=== PATIENT | female | born 1970 | race Hispanic/Latino ===

== ENCOUNTER 2022-03-03 09:08 | Emergency (ER) | payer SELFPAY ==
--- NOTE | 2022-03-03 09:19 | EDPHYS ---
Physician Documentation [facility] Name: Vannesa Jacob Age: 52 yrs Sex: Female : 1970 Arrival Date: 03/03/2022 Time: 09:11 Bed DIS1 Private MD: ED Physician Demetri Ott HPI: 03/03 09:17 This 52 yrs old Female presents to ER via Unassigned with complaints of Ear kb Pain. 09:17 The patient presents with pain, moderate. The complaints affect the left ear. Onset: kb The symptoms/episode began/occurred 3 day(s) ago. Modifying factors: The symptoms are alleviated by nothing, the symptoms are aggravated by touching. Associated signs and symptoms: The patient has no apparent associated signs or symptoms. Severity of symptoms: At their worst the symptoms were moderate in the emergency department the symptoms are unchanged. The patient has not experienced similar symptoms in the past. The patient has not recently seen a physician. Pt reports left ear pain for 3 days. Denies drainage, fever. States ear is painful to touch. Historical: - Allergies: 09:24 No Known Allergies; iw - Home Meds: :24 None [Active]; iw - PMHx: :24 None; iw - PSHx: :24 None; iw ROS: 09:17 Constitutional: Negative for fever, chills, and weight loss. kb 09:17 ENT: Positive for ear pain. 09:17 All other systems are negative. Exam: 09:17 Constitutional: This is a well developed, well nourished patient who is awake, alert, kb and in no acute distress. Head/Face: Normocephalic, atraumatic. Cardiovascular: Regular rate and rhythm with a normal S1 and S2. No gallops, murmurs, or rubs. No pulse deficits. Respiratory: Respirations even and unlabored. No increased work of breathing. Talking in full sentences Abdomen/GI: Soft, non-tender. No distention Skin: Warm, dry with normal turgor. Normal color. MS/ Extremity: Pulses equal, no cyanosis. Neurovascular intact. Full, normal range of motion. Neuro: Awake and alert, GCS 15, oriented to person, place, time, and situation. Moves all extremities. Normal gait. 09:17 ENT: External ear(s): are unremarkable, Ear canal(s): erythema, that is minimal, of the left canal, purulent discharge, that is moderate, in the left canal, swelling, that is moderate, of the left canal, TM's: are normal, Examination of the other ear shows no obvious abnormality. Vital Signs: 09:23 BP 167 / 76; Pulse 74; Resp 16; Temp 98.4; Pulse Ox 98% on R/A; iw MDM: 09:17 Patient medically screened. kb 09:17 Data reviewed: vital signs, nurses notes. Data interpreted: Pulse oximetry: on room air kb is 100 %. Interpretation: normal. Counseling: I had a detailed discussion with the patient and/or guardian regarding: the historical points, exam findings, and any diagnostic results supporting the discharge/admit diagnosis, the need for outpatient follow up, a family practitioner, to return to the emergency department if symptoms worsen or persist or if there are any questions or concerns that arise at home. Administered Medications: No medications were administered Disposition: 10:02 Co-signature as Attending Physician, Demetri Ott MD I agree with the assessment and rt plan of care. Disposition Summary: 03/03/22 09:19 Discharge Ordered Location: Home kb Condition: Stable kb Diagnosis - Unspecified otitis externa, left ear kb Followup: kb - With: Emergency Department - When: As needed - Reason: Worsening of condition Followup: kb - With: Private Physician - When: 2 - 3 days - Reason: Recheck today's complaints, Continuance of care, Re-evaluation by your physician Discharge Instructions: - Discharge Summary Sheet kb - Otitis Externa, [id number] kb - Ear Drops, Adult, [id number] kb Forms: - Medication Reconciliation Form kb - Thank You Letter kb - Antibiotic Education kb - Prescription Opioid Use kb Prescriptions: - Ciprodex 0.3-0.1 % Otic Drops, Suspension - instill 4 drops by OTIC route every 12 hours for 7 days , for ears ONLY; 1 kb Container; Refills: 0, Product Selection Permitted Signatures: Lo Faria, KOMAL-C KOMAL-Do Hernandez RN RN Demetri Patel MD MD rt Corrections: (The following items were deleted from the chart) 09:24 09:24 PMHx: Unable to Obtain; iw
--- NOTE | 2022-03-03 09:24 | ER ---
Nurse's Notes [facility] Name: Vannesa Jacob Age: 52 yrs Sex: Female : 1970 Arrival Date: 03/03/2022 Time: 09:11 Bed DIS1 Private MD: Diagnosis: Unspecified otitis externa, left ear Presentation: 03/03 09:23 Chief complaint: Patient states: left ear pain X 3 days. Coronavirus screen: At this iw time, the client does not indicate any symptoms associated with coronavirus-19. Ebola Screen: Patient negative for fever greater than or equal to 101.5 degrees Fahrenheit, and additional compatible Ebola Virus Disease symptoms Patient denies exposure to infectious person. Patient denies travel to an Ebola-affected area in the 21 days before illness onset. No symptoms or risks identified at this time. Initial Sepsis Screen: Does the patient meet any 2 criteria? No. Patient's initial sepsis screen is negative. Does the patient have a suspected source of infection? No. Patient's initial sepsis screen is negative. Risk Assessment: Do you want to hurt yourself or someone else? Patient reports no desire to harm self or others. Onset of symptoms was March 03, 2022. 09:23 Method Of Arrival: Ambulatory iw 09:23 Acuity: ANN-MARIE 4 iw Historical: - Allergies: 09:24 No Known Allergies; iw - Home Meds: 09:24 None [Active]; iw - PMHx: 09:24 None; iw - PSHx: 09:24 None; iw Vital Signs: 09:23 BP 167 / 76; Pulse 74; Resp 16; Temp 98.4; Pulse Ox 98% on R/A; iw ED Course: 09:11 Patient arrived in ED. mr 09:13 Lo F[facility]-C [facility] kb 09:13 Demetri Ott MD is Attending Physician. kb 09:23 Do Villarreal, RN is Primary Nurse. iw 09:24 Triage completed. iw 09:24 Arm band placed on. iw Administered Medications: No medications were administered Outcome: :19 Discharge ordered by . kb 09:24 Patient left the ED. iw Signatures: Lo Faria FNP-C FNP-Ckb Rivera, Mary mr Do Villarreal, RN RN iw Corrections: (The following items were deleted from the chart) :24 09:24 PMHx: Unable to Obtain; iw iw
[2022-03-03 09:27] VITALS: BP 167/76; TEMP 98.4; O2SAT 98
== END 2022-03-03 09:24 | disposition home or self-care (01) ==
LOC: ER 09:08
DX: H60.92 Unspecified otitis externa, left ear (principal)
CPT/HCPCS: 99281

== ENCOUNTER 2022-09-25 09:47 | Emergency (ER) | payer SELFPAY ==
[2022-09-25 10:26] LABS: Absolute Lymphocytes (CBC) 1.7 K/uL (0.7-4.9); Lymphocytes % 23.1 % (15.3-44.8); MCV 86.8 fL (80-100); MPV 7.8 fL (7.6-11.3); RBC Red Blood Cell Count 5.18 M/uL (3.86-4.86)
[2022-09-25 10:35] LABS: Specific Gravity 1.024 (1.005-1.030); Urine Bacteria None Seen /HPF (<20); Urine Bilirubin NEGATIVE (Negative); Urine Blood 1+ (Negative); Urine Clarity Turbid (Clear); Urine Color Yellow (Yellow); Urine Glucose NEGATIVE (Negative); Urine Mucus 3+ /HPF (None Seen); Urine Protein TRACE (Negative); Urine Urobilinogen Normal (Normal); Urine pH 5.5 (5.0-7.0)
[2022-09-25 10:42] LABS: Albumin 3.9 g/dL (3.4-5.0); Bilirubin Total 1.2 mg/dL (0.2-1.0); Potassium 3.7 mEq/L (3.5-5.1)
[2022-09-25 11:00] LABS: Specific Gravity 1.024 (1.005-1.030)
[2022-09-25] MEDS ORDERED: NA CHLORIDE 0.9% 1,000 ML ONE (11:16)
[2022-09-25] MEDS ORDERED: ONDANSETRON 4 MG/2 ML VIAL ONE (11:16)
[2022-09-25] MEDS ORDERED: FENTANYL CITR 100 MCG/2 ML ONE ×2 (11:16→12:41)
--- NOTE | 2022-09-25 11:17 | RAD REPORT ---
EXAM DESCRIPTION: US - Abdomen Exam Limited - 09/25/2022 11:07 am CLINICAL HISTORY: ABD PAIN COMPARISON: No comparisons FINDINGS: The gallbladder demonstrates a shadowing gallstone No pericholecystic fluid or gallbladder wall thickening. The common bile duct is normal measuring 4 mm. The liver demonstrates no findings of intrahepatic biliary dilatation. IMPRESSION: Cholelithiasis without sonographic evidence of acute cholecystitis.
--- NOTE | 2022-09-25 13:13 | RAD REPORT ---
EXAM DESCRIPTION: CT - Abdomen Pelvis W Contrast - 09/25/2022 12:58 pm CLINICAL HISTORY: Abdominal pain COMPARISON: none. TECHNIQUE: Computed axial tomography of the abdomen pelvis was obtained. 100 cc Isovue-300 was admin istered intravenously. Oral contrast was not requested which limits evaluation of bowel and appendix All CT scans are performed using dose optimization technique as appropriate and may include automated exposure control or mA/KV adjustment according to patient size. FINDINGS: The liver, spleen, pancreas, adrenal and kidneys appear unremarkable. There is no evidence of diverticulitis. Normal appendix No adnexal mass IMPRESSION: No acute abnormality is displayed.
--- NOTE | 2022-09-25 13:17 | EDPHYS ---
Physician Documentation [facility] Name: Vannesa Jacob Age: 52 yrs Sex: Female : 1970 Arrival Date: 09/25/2022 Time: 09:47 Bed 12 Private MD: LEVI Physician Reddy Sherman HPI: 09/25 12:27 This 52 yrs old Female presents to ER via Ambulatory with complaints of sharmila Abdominal Pain, Headache, Sore Throat. 12:27 The patient complains of pain to the forehead. Onset: The symptoms/episode sharmila began/occurred today. Associated signs and symptoms: The patient has no apparent associated signs or symptoms. 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 - Social history:: Smoking status: Patient reports the use of cigarette tobacco products, denies chronic smoking, but will smoke occasionally, Patient uses alcohol, occasionally. ROS: 12:30 Constitutional: Negative for fever, chills, and weight loss, Eyes: Negative for injury, sharmila pain, redness, and discharge, ENT: Negative for injury, pain, and discharge, Neck: Negative for injury, pain, and swelling, Cardiovascular: Negative for chest pain, palpitations, and edema, Respiratory: Negative for shortness of breath, cough, wheezing, and pleuritic chest pain, Back: Negative for injury and pain, : Negative for injury, bleeding, discharge, and swelling, MS/Extremity: Negative for injury and deformity, Skin: Negative for injury, rash, and discoloration, Neuro: Negative for headache, weakness, numbness, tingling, and seizure, Psych: Negative for depression, anxiety, suicide ideation, homicidal ideation, and hallucinations, Allergy/Immunology: Negative for hives, rash, and allergies, Endocrine: Negative for neck swelling, polydipsia, polyuria, polyphagia, and marked weight changes, Hematologic/Lymphatic: Negative for swollen nodes, abnormal bleeding, and unusual bruising. 12:30 Abdomen/GI: Positive for abdominal pain, of the epigastric area, right upper quadrant and left upper quadrant. Exam: 12:30 Constitutional: This is a well developed, well nourished patient who is awake, alert, sharmila and in no acute distress. Head/Face: Normocephalic, atraumatic. Eyes: Pupils equal round and reactive to light, extra-ocular motions intact. Lids and lashes normal. Conjunctiva and sclera are non-icteric and not injected. Cornea within normal limits. Periorbital areas with no swelling, redness, or edema. ENT: Nares patent. No nasal discharge, no septal abnormalities noted. Tympanic membranes are normal and external auditory canals are clear. Oropharynx with no redness, swelling, or masses, exudates, or evidence of obstruction, uvula midline. Mucous membranes moist. Neck: Trachea midline, no thyromegaly or masses palpated, and no cervical lymphadenopathy. Supple, full range of motion without nuchal rigidity, or vertebral point tenderness. No Meningismus. Chest/axilla: Normal chest wall appearance and motion. Nontender with no deformity. No lesions are appreciated. Cardiovascular: Regular rate and rhythm with a normal S1 and S2. No gallops, murmurs, or rubs. Normal PMI, no JVD. No pulse deficits. Respiratory: Lungs have equal breath sounds bilaterally, clear to auscultation and percussion. No rales, rhonchi or wheezes noted. No increased work of breathing, no retractions or nasal flaring. Back: No spinal tenderness. No costovertebral tenderness. Full range of motion. Skin: Warm, dry with normal turgor. Normal color with no rashes, no lesions, and no evidence of cellulitis. MS/ Extremity: Pulses equal, no cyanosis. Neurovascular intact. Full, normal range of motion. Neuro: Awake and alert, GCS 15, oriented to person, place, time, and situation. Cranial nerves II-XII grossly intact. Motor strength 5/5 in all extremities. Sensory grossly intact. Cerebellar exam normal. Normal gait. Psych: Awake, alert, with orientation to person, place and time. Behavior, mood, and affect are within normal limits. 12:30 Abdomen/GI: Inspection: distension, that is mild, Bowel sounds: active, Palpation: mild abdominal tenderness, moderate abdominal tenderness, Liver: no appreciated palpable abnormalities, Hernia: not appreciated. Vital Signs: 09:56 BP 153 / 106; Pulse 78; Resp 18; Temp 98.2(TE); Pulse Ox 99% on R/A; Weight 92.08 kg; ld1 Height 5 ft. 2 in. ; Pain 6/10; 12:42 BP 175 / 84; Pulse 60; Resp 16; Pulse Ox 100% on R/A; Pain 8/10; mb9 13:27 BP 148 / 69; Pulse 74; Resp 16; Pulse Ox 99% on R/A; mb9 09:56 Body Mass Index 37.13 (92.08 kg, 157.48 cm) ld1 09:56 Pain Scale: Adult ld1 12:42 Pain Scale: Adult mb9 [place] Coma Score: 12:31 Eye Response: spontaneous(4). Motor Response: obeys commands(6). Verbal Response: sharmila oriented(5). Total: 15. MDM: 09:54 Patient medically screened. sharmila 12:31 Differential diagnosis: sinusitis, vasomotor headache, bowel obstruction, sharmila cholecystitis, Cholelithiasis, gastritis, gastroesophageal reflux disease, non-specific abd pain, pancreatitis, Peptic Ulcer Disease, urinary tract infection. Data reviewed: vital signs, nurses notes, EMS record, lab test result(s), radiologic studies, CT scan, ultrasound. Consideration of Admission/Observation Escalation of care including admission/observation considered. I considered the following discharge prescriptions or medication management in the emergency department Medications were administered in the Emergency Department. See MAR. Test considered but Not performed: EKG: NO EKG. Care significantly affected by the following chronic conditions: NONE. 09/25 10:01 Order name: CBC with Diff; Complete Time: 12:27 [facility] 09/25 10:01 Order name: CMP; Complete Time: 12:27 [facility] 09/25 10:01 Order name: Lipase; Complete Time: 12:27 [facility] 09/25 10:01 Order name: Urinalysis w/ reflexes; Complete Time: 12:27 [facility] 09/25 10:27 Order name: PREGU; Complete Time: 12:27 [facility] 09/25 12:31 Order name: Strep [facility] 09/25 10:27 Order name: US Abdomen Limited; Complete Time: 12:27 [facility] 09/25 12:29 Order name: CT Abd/Pelvis - IV Contrast Only; Complete Time: 13:16 [facility] 09/25 10:01 Order name: IV Saline Lock; Complete Time: 10: ld1 09/25 10:01 Order name: Labs collected and sent; Complete Time: : ld1 Administered Medications: 11:17 Drug: NS 0.9% IV 1000 ml Route: IV; Rate: 1 bolus; Site: right antecubital; iw 12:15 Follow up: IV Status: Completed infusion iw 11:17 Drug: Famotidine IVP 20 mg Route: IVP; Site: right antecubital; iw 11:35 Follow up: Response: No adverse reaction iw 11:17 Drug: fentaNYL (PF) IVP 50 mcg Route: IVP; Site: right antecubital; iw 11:40 Follow up: Response: No adverse reaction iw 11:17 Drug: Ondansetron IVP 4 mg Route: IVP; Site: right antecubital; iw 11:35 Follow up: Response: No adverse reaction iw 12:41 Drug: fentaNYL (PF) IVP 50 mcg Route: IVP; Site: right forearm; mb9 13:19 Follow up: Response: No adverse reaction mb9 Disposition Summary: 09/25/22 13:16 Discharge Ordered Location: Home sharmila Problem: new sharmila Symptoms: have improved sharmila Condition: Stable sharmila Diagnosis - Calculus of gallbladder without cholecystitis without obstruction sharmila - Epigastric abdominal tenderness sharmila Followup: sharmila - With: Private Physician - When: 2 - 3 days - Reason: Recheck today's complaints, Continuance of care, Re-evaluation by your physician Followup: sharmila - With: - When: 2 - 3 days - Reason: Recheck today's complaints, Re-evaluation by your physician Discharge Instructions: - Discharge Summary Sheet sharmila - Abdominal Pain, Adult sharmila - Cholelithiasis sharmila - Cholelithiasis, [id number] sharmila - Abdominal Pain, Adult, [id number] sharmila Forms: - Medication Reconciliation Form sharmila - Thank You Letter sharmila - Antibiotic Education sharmila - Prescription Opioid Use [facility] - Work release form mb9 Prescriptions: - Pepcid 20 mg Oral Tablet - take 1 tablet by ORAL route every 12 hours for 10 days; 20 tablet; Refills: 0, [facility] Product Selection Permitted - Zofran 4 mg Oral Tablet - take 1 tablet by ORAL route every 6 hours As needed; 28 tablet; Refills: 0, [facility] Product Selection Permitted - dicyclomine 20 mg Oral Tablet - take 1 tablet by ORAL route 4 times per day; 28 tablet; Refills: 0, Product sharmila Selection Permitted Signatures: Dispatcher [employer] Reddy Garcia MD MD cha Williams, Irene, RN RN iw Sims, Lauren, RN RN ld1 Kellen Mcintyre RN RN mb9
--- NOTE | 2022-09-25 13:17 | ER ---
Nurse's Notes [facility] Name: Vannesa Jacob Age: 52 yrs Sex: Female : 1970 Arrival Date: 09/25/2022 Time: 09:47 Bed 12 Private MD: Diagnosis: Calculus of gallbladder without cholecystitis without obstruction;Epigastric abdominal tenderness Presentation: 09/25 09:56 Chief complaint: Patient states: Headache \T\ stomach pains since morning. N/V. ld1 Coronavirus screen: At this time, the client does not indicate any symptoms associated with coronavirus-19. Ebola Screen: No symptoms or risks identified at this time. Initial Sepsis Screen: Does the patient meet any 2 criteria? No. Patient's initial sepsis screen is negative. Does the patient have a suspected source of infection? No. Patient's initial sepsis screen is negative. Risk Assessment: Do you want to hurt yourself or someone else? Patient reports no desire to harm self or others. Onset of symptoms was September 25, 2022 at 09:59. 09:56 Method Of Arrival: Ambulatory ld1 09:56 Acuity: ANN-MARIE 3 ld1 Triage Assessment: 09:59 General: Appears in no apparent distress. comfortable, Behavior is calm, cooperative, ld1 appropriate for age. Pain: Complains of pain in face and epigastric area Pain does not radiate. Pain currently is 6 out of 10 on a pain scale. at worst was 9 out of 10 on a pain scale. Quality of pain is described as throbbing. EENT: No signs and/or symptoms were reported regarding the EENT system. Neuro: Level of Consciousness is awake, alert, obeys commands, Oriented to person, place, time, situation. Cardiovascular: Capillary refill < 3 seconds Patient's skin is warm and dry. Respiratory: Airway is patent Respiratory effort is even, unlabored, Respiratory pattern is regular, symmetrical. GI: Abdomen is round non-distended, Reports upper abdominal pain, epigastric pain, nausea, vomiting. : No signs and/or symptoms were reported regarding the genitourinary system. Derm: No signs and/or symptoms reported regarding the dermatologic system. Musculoskeletal: No signs and/or symptoms reported regarding the musculoskeletal system. 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 - Social history:: Smoking status: Patient reports the use of cigarette tobacco products, denies chronic smoking, but will smoke occasionally, Patient uses alcohol, occasionally. Screenin:54 [facility] ED Fall Risk Assessment (Adult) History of falling in the last 3 months, iw including since admission. Abuse screen: Denies threats or abuse. Denies injuries from another. Nutritional screening: No deficits noted. Tuberculosis screening: No symptoms or risk factors identified. Assessment: 11:00 General: Appears in no apparent distress. Behavior is calm, cooperative. Pain: iw Complains of pain in abdomen and epigastric area. Neuro: Level of Consciousness is awake, alert, obeys commands, Oriented to person, place, time, situation, Moves all extremities. Full function. Respiratory: Respiratory effort is even, unlabored, Respiratory pattern is regular, symmetrical. GI: Bowel sounds Abd is soft and non tender Reports upper abdominal pain. Musculoskeletal: Range of motion: intact in all extremities. 12:17 Reassessment: No changes from previously documented assessment. Patient and/or family mb9 updated on plan of care and expected duration. Pain level reassessed. Patient is alert, oriented x 3, equal unlabored respirations, skin warm/dry/pink. 13:16 Reassessment: Patient and/or family updated on plan of care and expected duration. Pain mb9 level reassessed. Patient is alert, oriented x 3, equal unlabored respirations, skin warm/dry/pink. Patient states feeling better. Patient states symptoms have improved. Vital Signs: 09:56 BP 153 / 106; Pulse 78; Resp 18; Temp 98.2(TE); Pulse Ox 99% on R/A; Weight 92.08 kg; ld1 Height 5 ft. 2 in. ; Pain 6/10; 12:42 BP 175 / 84; Pulse 60; Resp 16; Pulse Ox 100% on R/A; Pain 8/10; mb9 13:27 BP 148 / 69; Pulse 74; Resp 16; Pulse Ox 99% on R/A; mb9 09:56 Body Mass Index 37.13 (92.08 kg, 157.48 cm) ld1 09:56 Pain Scale: Adult ld1 12:42 Pain Scale: Adult mb9 [place] Coma Score: 12:31 Eye Response: spontaneous(4). Motor Response: obeys commands(6). Verbal Response: sharmila oriented(5). Total: 15. ED Course: 09:48 Patient arrived in ED. mr 09:54 Reddy Sherman MD is Attending Physician. sharmila 09:59 Triage completed. ld1 09:59 Arm band placed on right wrist. ld1 10:07 Urinalysis w/ reflexes Sent. ld1 10:07 Lipase Sent. ld1 10:07 CMP Sent. ld1 10:07 CBC with Diff Sent. ld1 10:07 Inserted saline lock: 20 gauge in right antecubital area, using aseptic technique. ld1 Blood collected. 10:36 Do Villarreal, RN is Primary Nurse. iw 11:09 US Abdomen Limited In Process Unspecified. EDMS 11:54 Patient has correct armband on for positive identification. iw 12:41 Strep Sent. mb9 13:00 CT Abd/Pelvis - IV Contrast Only In Process Unspecified. EDMS 13:16 Cory Brody MD is Referral Physician. sharmila 13:17 No provider procedures requiring assistance completed. IV discontinued, intact, mb9 bleeding controlled, No redness/swelling at site. Pressure dressing applied. Administered Medications: 11:17 Drug: NS 0.9% IV 1000 ml Route: IV; Rate: 1 bolus; Site: right antecubital; iw 12:15 Follow up: IV Status: Completed infusion iw 11:17 Drug: Famotidine IVP 20 mg Route: IVP; Site: right antecubital; iw 11:35 Follow up: Response: No adverse reaction iw 11:17 Drug: fentaNYL (PF) IVP 50 mcg Route: IVP; Site: right antecubital; iw 11:40 Follow up: Response: No adverse reaction iw 11:17 Drug: Ondansetron IVP 4 mg Route: IVP; Site: right antecubital; iw 11:35 Follow up: Response: No adverse reaction iw 12:41 Drug: fentaNYL (PF) IVP 50 mcg Route: IVP; Site: right forearm; mb9 13:19 Follow up: Response: No adverse reaction mb9 Medication: 12:17 VIS not applicable for this client. mb9 Outcome: 13:16 Discharge ordered by MD. doll 13:27 Discharged to home ambulatory. mb9 13:27 Condition: stable 13:27 Discharge instructions given to patient, Instructed on discharge instructions, follow up and referral plans. Demonstrated understanding of instructions, follow-up care, medications, Prescriptions given X 3. 13:27 Patient left the ED. mb9 Signatures: Dispatcher [employer] EDTX Reddy Sherman MD MD cha Rivera, Mary mr Williams, Irene, RN Evelina Gonzalez RN RN ld1 Kellen Mcintyre, RN RN mb9
== END 2022-09-25 13:27 | disposition home or self-care (01) ==
LOC: ER 09:47
DX: K80.20 Calculus of gallbladder without cholecystitis without obstruction (principal); F17.210 Nicotine dependence, cigarettes, uncomplicated; Z98.82 Breast implant status
CPT/HCPCS: 36415; 74177; 76705; 80053; 81001; 81025; 83690; 85025; 87070; 87081; 99284; J2405; J3010; J7030; Q9967